=== PATIENT | female | born 1980 ===

== ENCOUNTER → 2018-12-10 | Outpatient (CLI) | payer SELFPAY ==
--- NOTE | 2018-12-10 14:26 | US ---
EXAMINATION TYPE: Transabdominal DATE OF EXAM: 02/03/18 COMPARISON: NONE CLINICAL HISTORY: O46.91 Antepartum hemorrhage first trimester, O76. EXAM PERFORMED: Transabdominal (TA) EXAM MEASUREMENTS: GESTATIONAL AGE / DATING Physician Established: (9 weeks/1 days) EDC: 07/14/2019 Dates by LMP: (9 weeks/1 days) EDC: 07/14/2019 Dates by First Scan: No previous this is first scan Dates by Current Scan for: demise, no heart tones MATERNAL ANATOMY Uterus: 9.4 x 5.3 x 7.7 cm Right Ovary: not identified Left Ovary: not identified Post CDS / Adnexa: wnl Presence of free fluid: none GESTATION / SURVEY CRL: 3.6 cm (10 weeks/4 days) MSD: 4.7 (10 weeks/2 days) Heart Rate: no heart tones Date of LMP: 10/07/2018 IMPRESSION: non viable 10 week 4 day fetus.
== END | disposition home or self-care (01) ==
LOC: RADUSWWP 13:47
PROVIDERS: ATTEND Obstetrics & Gynecology
DX: O76 Abnormality in fetal heart rate and rhythm complicating labor and delivery (principal); Z3A.10 10 weeks gestation of pregnancy
CPT/HCPCS: 76801

== ENCOUNTER → 2019-01-13 | Outpatient (CLI) | payer BC ==
[2019-01-13 17:08] LABS: Basophils % (A) 1 %; Eosinophils # (A) 0.1 k/uL (0-0.7); Eosinophils % (A) 3 %; HCT 38.1 % (34.0-46.0); HGB 12.5 gm/dL (11.4-16.0); Lymphocytes # (A) 1.5 k/uL (1.0-4.8); Lymphocytes % (A) 29 %; MCH 30.5 pg (25.0-35.0); MCHC 32.9 g/dL (31.0-37.0); MCV 92.7 fL (80.0-100.0); Mean Platelet Volume 6.4; Monocytes # (A) 0.2 k/uL (0-1.0); Monocytes % (A) 5 %; Neutrophils # (A) 3.3 k/uL (1.3-7.7); Neutrophils % (A) 62 %; Platelet Count 314 k/uL (150-450); RBC 4.11 m/uL (3.80-5.40); RDW 13.2 % (11.5-15.5); WBC 5.3 k/uL (3.8-10.6)
== END | disposition home or self-care (01) ==
LOC: LABPAT 15:40
PROVIDERS: ATTEND Obstetrics & Gynecology
DX: Z01.812 Encounter for preprocedural laboratory examination (principal); O03.9 Complete or unspecified spontaneous abortion without complication
CPT/HCPCS: 36415; 85025; 86850; 86900; 86901

== ENCOUNTER 2019-01-15 11:49 | Day surgery (SDC) | payer BC ==
[2019-01-14 09:17] VITALS: BMI 24.6
[~2019-01-15 11:49] MED LIST: DEXAMETHASONE SOD PHOSPHATE 10 MG/ML 1 ML VIAL IV ONE; HYDROmorphone 0.5 MG/0.5 ML SYRINGE IVP PRN; LACTATED RINGERS 1,000 ML IV SCH; LIDOCAINE 1% 20 ML VIAL (10MG/ML) FOR IV START INTRADERMA PRN; MIDAZOLAM (PF) 2 MG/2 ML VIAL IV PRN; ONDANSETRON 4 MG/2 ML VIAL IVP ONE; Pre Op ABX Message 1 EACH MISC MISCELLANE ONE; SCOPOLAMINE 1.5MG/72HR PATCH TRANSDERM ONE
[2019-01-15 12:02] VITALS: RESP 16
[2019-01-15] MEDS ORDERED: MIDAZOLAM 2 MG/2 ML VIAL ONE (12:32)
[2019-01-15] MEDS ORDERED: KETOROLAC 30 MG/ML 1 ML VIAL ONE (12:32)
[2019-01-15] MEDS ORDERED: PROPOFOL 10 MG/ML 20 ML VIAL IV ONE (12:32)
[2019-01-15] MEDS ORDERED: fentaNYL (PF) 50 MCG/ML 2 ML AMP ONE (12:32)
[2019-01-15] MEDS ORDERED: LIDOCAINE 1% INJ 10MG/ML (20 ML MDV) ONE (12:32)
[2019-01-15] MEDS ORDERED: Acetaminophen-Codeine 300-30mg TAB PO PRN ×2 (12:56)
[2019-01-15] MEDS ORDERED: KETOROLAC 30 MG/ML 1 ML VIAL IVP PRN (12:56)
[2019-01-15] MEDS ORDERED: ONDANSETRON 4 MG/2 ML VIAL IVP PRN (12:56)
[2019-01-15] MEDS ORDERED: diphenhydrAMINE 50 MG/ML 1 ML VIAL IVP PRN (12:56)
[2019-01-15] MEDS ORDERED: SIMETHICONE 80 MG CHEWABLE PO PRN (12:56)
[2019-01-15] MEDS ORDERED: METOCLOPRAMIDE 5 MG/ML 2 ML VIAL IVP PRN (12:56)
[2019-01-15] MEDS ORDERED: LACTATED RINGERS 1,000 ML IV SCH (13:00)
--- NOTE | 2019-01-15 13:02 | P.OP ---
Date of Procedure: 01/15/19 Preoperative Diagnosis: #1. 9+ week missed Postoperative Diagnosis: Same Procedure(s) Performed: 1. Dilation and aspiration curettage Anesthesia: other (Gen. by face mask) Surgeon: Viral Cruz Estimated Blood Loss (ml): 200 IV fluids (ml): 600 Urine output (ml): 30 Pathology: other (Intrauterine contents) Condition: stable Disposition: PACU Operative Findings: Preoperative pelvic examination demonstrated a roughly 8-10 week retroverted normal shaped uterus with normal adnexa bilaterally. Intraoperatively, the uterus sounded to approximate 10 cm. A #9 curved aspiration curet was utilized and tissue was clearly seen passing through the tubing on the first 2 passes. The typical gritty texture was encountered with a sharp curette. The patient does have cervical descensus to near the opening of the vagina. Description of Procedure: The patient was prepped and draped in usual fashion after general anesthesia was administered by the anesthesiologist. A weighted speculum was placed and the bladder drained of approximately 30 mL of clear faisal urine. The anterior lip of the cervix was grasped with a single-tooth tenaculum and the uterus sounded to approximately 10 cm. Serial dilation was carried out to admit a #9 curved aspiration curet which was placed in the fundus of the uterus and suction applied. After holding adequate suction, the lens and circumferential suction curettage was carried out from the fundus to the cervix with tissue and fluid was seen passing through the tubing. On the second pass tissue was again seen passing through and was noted to be lodged in the cervix. A ring forceps was utilized to tease out what appeared to be the remainder of the tissue. One more pass was made with the suction curet which time no further tissue was noted. It was replaced with a sharp curette which was utilized to again thoroughly and circumferentially curet the initial cavity with no tissue further noted in the typical gritty texture encountered throughout. One last pass was made with the suction curet at which time no further tissue was noted and the cavity was appreciably smaller. All instrumentation was then removed. There was no bleeding ongoing from either the cervix or the tenaculum site. Estimated blood loss for the entire case was approximately 200 mL. There were no complications. All sponge, instrument, and needle counts were correct. The patient tolerated the procedure well and proceeded to the recovery room in stable condition.
[2019-01-15 13:09] VITALS: TEMP 98
[2019-01-15] MEDS ORDERED: LACTATED RINGERS 1,000 ML IV ONE (13:54)
[2019-01-15 14:32] VITALS: BP 112/79; PULSE 89
== END 2019-01-15 14:52 | disposition home or self-care (01) ==
LOC: OR 11:49
PROVIDERS: ATTEND Obstetrics & Gynecology
DX: O02.1 Missed abortion (principal); Z79.899 Other long term (current) drug therapy
CPT/HCPCS: 86900; 86901; 88305; 86850; 59820; J2250; J1100; J2405; J2001; J3010; J1885; J2704

== ENCOUNTER 2020-01-24 15:07 | Inpatient (IN) | payer BC ==
[2020-01-24] MEDS ORDERED: CITRIC ACID-SODIUM CITRATE 15 ML CUP PO ONE (15:10)
[2020-01-24] MEDS: LACTATED RINGERS 1,000 ML IV SCH ×2 (15:28→22:23)
[2020-01-24 15:37] LABS: Anisocytosis Slight; Basophils % (A) 0 %; Eosinophils # (A) 0.1 k/uL (0-0.7); Eosinophils % (A) 1 %; HCT 36.2 % (34.0-46.0); HGB 11.8 gm/dL (11.4-16.0); Lymphocytes # (A) 1.2 k/uL (1.0-4.8); Lymphocytes % (A) 13 %; MCH 29.6 pg (25.0-35.0); MCHC 32.6 g/dL (31.0-37.0); MCV 90.8 fL (80.0-100.0); Monocytes # (A) 0.3 k/uL (0-1.0); Monocytes % (A) 4 %; Neutrophils # (A) 7.4 k/uL (1.3-7.7); Neutrophils % (A) 81 %; Platelet Count 277 k/uL (150-450); RBC 3.99 m/uL (3.80-5.40); RDW 16.9 % (11.5-15.5); WBC 9.2 k/uL (3.8-10.6)
[2020-01-24] MEDS ORDERED: OXYTOCIN 10 UNIT/ML 1 ML VIAL ONE (16:33)
[2020-01-24] MEDS ORDERED: KETOROLAC 30 MG/ML 1 ML VIAL ONE (16:33)
[2020-01-24] MEDS ORDERED: MORPHINE SULFATE (PF) 0.3 MG/0.3 ML SYR ONE (16:33)
[2020-01-24] MEDS ORDERED: NALBUPHINE 10 MG/ML (1 ML AMP) ONE (16:33)
[2020-01-24] MEDS ORDERED: ONDANSETRON 4 MG/2 ML VIAL ONE (16:33)
--- NOTE | 2020-01-24 16:33 | P.HPOB ---
History of Present Illness H&P Date: 01/24/20 Chief Complaint: 40-6/7 weeks, previous section, desires repeat The patient is a 39-year-old 3 para 1011 admitted at 40-6/7 weeks as established by last menstrual period and confirmed by 9 week ultrasound. She is admitted for repeat low transverse section with intraoperative bilateral tubal occlusion with Filshie clips. The risks and, occasions of been thoroughly discussed. She initially had requested a trial of labor but found, as she neared term, that her cervix remained significantly unfavorable and ultimately opted for repeat low transverse section. Group B strep status is negative. Obstetrical history: 3 para 1011 with 1 term section. She had one late first trimester miscarriage that required D&C. Current statistics are listed in history of present illness. EDC of 01/18/2020 was established by last menstrual period and confirmed by 9 week ultrasound. Laboratory workup demonstrates a blood type of O+ with a negative antibody screen. Rubella status is immune. The remainder of the laboratory workup was within normal limits. She did undergo trisomy testing which was negative for evidence of trisomy. One hour Glucola was within normal limits and group B strep status is negative. Gynecologic history: Unremarkable with no history of any infections to include STDs. Review of Systems Review of systems is confined to history of present illness. Past Medical History Past Medical History: No Reported History History of Any Multi-Drug Resistant Organisms: None Reported Past Surgical History: Section, Cholecystectomy Past Anesthesia/Blood Transfusion Reactions: No Reported Reaction Past Psychological History: No Psychological Hx Reported Smoking Status: Never smoker Past Alcohol Use History: Occasional Past Drug Use History: None Reported - Past Family History Mother Family Medical History: No Reported History Medications and Allergies Home Medications Medication Instructions Recorded Confirmed Type Ayq-Jrso-Poknn Acid 1 cap PO DAILY 01/14/19 01/24/20 History [-U Capsule (formulary)] Allergies Allergy/AdvReac Type Severity Reaction Status Date / Time No Known Allergies Allergy Verified 01/14/19 09:11 Exam Vital Signs Temp Pulse Resp BP Pulse Ox 01/24/20 15:45 98.0 F 86 18 120/74 99 Intake and Output 01/24/20 01/24/20 01/24/20 06:59 14:59 22:59 Other: Weight 68.492 kg In general, this is a well-developed, well-nourished female in no acute distress. Her heart has a regular rhythm and rate without murmur. Her lungs are clear to auscultation bilaterally in all nunes. Her abdomen is gravid, nondistended, has normal active bowel sounds, soft, nontender, and without any palpable masses aside from the uterine fundus. Her extremities are without any cyanosis, clubbing, or significant edema and are nontender to palpation bilaterally. Digital cervical examination has demonstrated her cervix to be closed, 30% effaced, the vertex in presentation at a high station. Results Result Diagrams: 01/24/20 15:24 Abnormal Lab Results - Last 24 Hours (Table) 01/24/20 Range/Units 15:24 RDW 16.9 H (11.5-15.5) % Assessment and Plan (1) Post-dates Current Visit: Yes Status: Acute Code(s): O48.0 - POST-TERM SNOMED Code(s): 01531785 (2) Previous section Current Visit: Yes Status: Acute Code(s): Z98.891 - HISTORY OF UTERINE SCAR FROM PREVIOUS SURGERY SNOMED Code(s): 405437985 (3) Family planning Current Visit: Yes Status: Acute Code(s): Z30.09 - ENCOUNTER FOR OT GENERAL CNSL AND ADVICE ON CONTRACEPTION SNOMED Code(s): 110358080 Plan: The patient is admitted for repeat low transverse section with int raoperative bilateral tubal occlusion using Filshie clips. The risks and complications the procedure have been thoroughly discussed including the risk for bleeding and infection. She also understands the risk of tubal ligation as well as its permanent nature and risk for failure.
[2020-01-24] MEDS ORDERED: diphenhydrAMINE 25 MG CAP PO PRN (17:20)
[2020-01-24] MEDS ORDERED: LANOLIN CREAM 5 GM TUBE TOPICAL PRN (17:20)
[2020-01-24] MEDS ORDERED: diphenhydrAMINE 50 MG/ML 1 ML VIAL IVP PRN ×2 (17:20)
[2020-01-24] MEDS ORDERED: ONDANSETRON 4 MG/2 ML VIAL IVP PRN ×2 (17:20→17:49)
[2020-01-24] MEDS ORDERED: NALOXONE 0.4 MG/ML 1 ML VIAL IV PRN ×2 (17:20→17:49)
[2020-01-24] MEDS ORDERED: METOCLOPRAMIDE 5 MG/ML 2 ML VIAL IVP PRN (17:20)
[2020-01-24] MEDS ORDERED: ACETAMINOPHEN TAB 325 MG TAB PO PRN (17:20)
[2020-01-24] MEDS ORDERED: SIMETHICONE 80 MG CHEWABLE PO PRN (17:20)
[2020-01-24] MEDS ORDERED: HYDROcodone/APAP 7.5-325MG 1 EACH TAB PO PRN (17:20)
[2020-01-24] MEDS ORDERED: ZOLPIDEM 5 MG TAB PO PRN (17:20)
[2020-01-24] MEDS ORDERED: diphenhydrAMINE 50 MG CAP PO PRN (17:20)
--- NOTE | 2020-01-24 17:29 | P.OP ---
Date of Procedure: 01/24/20 Preoperative Diagnosis: #1. 40-6/7 weeks, previous section, requesting repeat #2. Undesired fertility #3. Advanced maternal age Postoperative Diagnosis: Same Procedure(s) Performed: #1. Repeat low transverse section #2. Intraoperative bilateral tubal occlusion with Filshie clips Anesthesia: spinal Surgeon: Viral Cruz [employer]er #1: Lisset James Estimated Blood Loss (ml): 500 IV fluids (ml): 800 Urine output (ml): 100 Pathology: none sent Condition: stable Disposition: floor Operative Findings: Intraoperatively, the patient was noted to have minimal to almost no fluid upon opening the uterus. What was there was noted to be particulate meconium-stained in nature. Otherwise, the patient was delivered of a viable 8 lbs. 6 oz. baby girl with Apgars of 8 at 1 minute and 9 at 5 minutes delivered in the left occiput anterior position. There was a loose nuchal cord which was reduced prior to delivery of the infant's body. There was additionally noted to be a true knot in the cord. The placenta was delivered manually, intact, and grossly normal aside from meconium staining with a grossly normal three-vessel cord. The uterus, tubes, and ovaries were entirely normal. A Filshie clip was placed across the entire isthmic portion of the tube approximately 3 cm from the cornu on each side. Scarring was relatively minimal throughout. Description of Procedure: The patient was prepped and draped in usual fashion after spinal anesthesia was administered by the anesthesiologist. A Pfannenstiel incision was made through pre-existing scar and extended into the abdominal cavity without difficulty. The bladder peritoneum was noted to be scarred somewhat high and was therefore elevated, incised, and reflected distally. A 2 cm incision was made in the transverse plane of the lower uterine segment to enter the uterus at which there was almost no fluid noted, was present was meconium-stained. Incision was extended in both directions bluntly. The head was delivered up and through the incision where the nose and mouth were thoroughly suctioned. The remainder of the was delivered onto the field where the cord was doubly clamped, cut, and the infant passed for resuscitative measures with weight and Apgars as noted above. A true knot was noted in the cord at this time. A segment of cord was then doubly clamped, cut, and set aside should cord gases become necessary. The placenta was delivered manually and intact as noted above. The uterus was exteriorized and the interior cavity of the uterus swept of any remaining placental or membranous fragments. The margins of the uterine incision were grasped with Carrasco clamps and the incision closed in a single layer with a running locking stitch of 0 chromic catgut from margin to margin. There did appear to be a developing hematoma on the superior portion of the incision in the right middle portion which was managed with a mjkdea-rs-dpgoa stitch of 0 chromic catgut. Hemostasis was otherwise excellent. The posterior cul-de-sac was suctioned with a guard followed by a laparotomy sponge. After reaffirming the patient's desire for tubal ligation, a Filshie clip was placed across the isthmic portion of each tube and firmly closed approximately 3 cm from the cornu of the uterus on each side. The uterus was replaced within the abdominal cavity and the gutters were swept of any remaining blood, fluid, or clot. The incision was examined and noted to be hemostatic. The parietal peritoneum was loosely reapproximated and layer of muscles examined and made hemostatic with the Bovie. The fascia was closed with 2 running stitches of 0 Vicryl proceeding from the lateral margins to the midpoint. The subcutaneous tissues were irrigated, made hemostatic with the Bovie and did not reapproximated as they were very thin. The skin was reapproximated with a running subcuticular stitch of 4-0 Vicryl followed by half-inch Steri-Strips placed with Mastisol. Estimated blood loss for the entire case was approximate 500 mL. There were no complications. All sponge, instrument, and needle counts were correct. The patient tolerated the procedure well and proceeded to the recovery room in stable condition. Both mother and are resting comfortably in recovery.
[2020-01-24] MEDS ORDERED: OXYTOCIN 20 UNITS/1000 ML NS 1,000 ML IV SCH (17:30)
[2020-01-24] MEDS ORDERED: LACTATED RINGERS 1,000 ML IV SCH (17:30)
[2020-01-24] MEDS ORDERED: HYDROmorphone 0.5 MG/0.5 ML SYRINGE IVP PRN (17:49)
[2020-01-24] MEDS ORDERED: KETOROLAC 30 MG/ML 1 ML VIAL IVP PRN (17:49)
[2020-01-24] MEDS: KETOROLAC 30 MG/ML 1 ML VIAL IVP PRN (22:28)
[2020-01-24] MEDS: SENNOSIDES-DOCUSATE SODIUM 1 EACH TAB PO SCH (22:41)
--- NOTE | 2020-01-25 07:03 | P.PN ---
Progress Note - Text Progress Note Date: 01/25/20 Postoperative day 1 status post section under spinal anesthesia, and intrathecal morphine given for postoperative analgesia, patient doing well, there is no anesthesia related complications, Patient had no headache, vital signs stable , Assessment and plan= postop day 1 status post , doing well there is no anesthesia related complication.
[2020-01-25 07:16] LABS: Anisocytosis Slight; Basophils % (A) 0 %; Eosinophils # (A) 0.1 k/uL (0-0.7); Eosinophils % (A) 1 %; HCT 28.9 % (34.0-46.0); Lymphocytes # (A) 0.8 k/uL (1.0-4.8); Lymphocytes % (A) 10 %; MCH 30.6 pg (25.0-35.0); MCHC 33.3 g/dL (31.0-37.0); MCV 91.7 fL (80.0-100.0); Mean Platelet Volume 8.7; Monocytes # (A) 0.3 k/uL (0-1.0); Monocytes % (A) 3 %; Neutrophils # (A) 6.5 k/uL (1.3-7.7); Neutrophils % (A) 84 %; Platelet Count 273 k/uL (150-450); RBC 3.15 m/uL (3.80-5.40); WBC 7.7 k/uL (3.8-10.6)
[2020-01-25 07:25] LABS: HGB 9.6 gm/dL (11.4-16.0)
[2020-01-25] MEDS: SENNOSIDES-DOCUSATE SODIUM 1 EACH TAB PO SCH ×2 (08:28→21:02)
[2020-01-25] MEDS: LACTATED RINGERS 1,000 ML IV SCH (08:28)
--- NOTE | 2020-01-25 11:22 | P.PNOBGPC ---
Subjective - Subjective Patient reports: Reports appetite normal, Reports voiding normally (Initially required straight catheterization, has been able to void since.), Reports pain well controlled, Reports ambulating normally [place]: doing well, nursing well Objective - Vital Signs Latest vital signs: Vital Signs Temp Pulse Resp BP Pulse Ox 01/25/20 08:00 98.2 F 84 18 95/60 01/25/20 06:00 16 100 01/25/20 04:00 98.2 F 77 16 107/72 100 01/25/20 02:00 16 01/25/20 00:00 98.4 F 72 16 101/62 99 01/24/20 22:00 16 01/24/20 20:49 16 01/24/20 19:31 98.1 F 67 16 111/72 100 01/24/20 19:00 96.5 F L 60 18 114/68 100 01/24/20 18:30 88 18 126/65 99 01/24/20 18:15 69 18 120/64 01/24/20 18:00 96.8 F L 73 18 114/57 100 01/24/20 17:45 96.7 F L 18 111/70 100 01/24/20 17:30 97.0 F L 75 18 106/66 100 01/24/20 15:45 98.0 F 86 18 120/74 99 Intake and Output 01/24/20 01/25/20 01/25/20 22:59 06:59 14:59 Output Total 100 400 700 Balance -100 -400 -700 Output: Urine 100 400 700 Uretheral (Armando) 200 Other: Voiding Method Indwelling Catheter Weight 68.492 kg - Exam Extremities: Present: normal Abdomen: Present: normal appearance, soft. Absent: distention, tenderness Incision: Present: normal, dry, intact Uterus: Present: normal, firm (The uterine fundus is tonic and appropriately tender below the umbilicus.) - Labs Labs: Abnormal Lab Results - Last 24 Hours (Table) 01/24/20 01/25/20 Range/Units 15:24 06:46 RBC 3.15 L (3.80-5.40) m/uL Hgb 9.6 L D (11.4-16.0) gm/dL Hct 28.9 L (34.0-46.0) % RDW 16.9 H 17.0 H (11.5-15.5) % Lymphocytes # 0.8 L (1.0-4.8) k/uL Assessment and Plan (1) Post-dates Current Visit: Yes Status: Acute Code(s): O48.0 - POST-TERM SNOMED Code(s): 89443325 (2) Previous section Current Visit: Yes Status: Acute Code(s): Z98.891 - HISTORY OF UTERINE SCAR FROM PREVIOUS SURGERY SNOMED Code(s): 377283144 (3) Family planning Current Visit: Yes Status: Acute Code(s): Z30.09 - ENCOUNTER FOR OT GENERAL CNSL AND ADVICE ON CONTRACEPTION SNOMED Code(s): 897852072 (4) S/P section Current Visit: Yes Status: Acute Code(s): Z98.891 - HISTORY OF UTERINE SCAR FROM PREVIOUS SURGERY SNOMED Code(s): 147950618 Plan: Continue routine postoperative care. I would anticipate possible discharge home tomorrow pending no complications. I have strongly encouraged the patient to ambulating the hallways as often as possible, at least 4 times daily. Otherwise, her IV fluids will be discontinued though the IV will be left in place for some time in case IV access becomes necessary.
[2020-01-25] MEDS: KETOROLAC 30 MG/ML 1 ML VIAL IVP PRN ×2 (12:11→18:00)
[2020-01-25] MEDS: HYDROcodone/APAP 5-325MG 1 EACH TAB PO PRN (20:33)
[2020-01-26] MEDS: HYDROcodone/APAP 5-325MG 1 EACH TAB PO PRN (04:54)
[2020-01-26 05:11] VITALS: PULSE 85
[2020-01-26] MEDS: SENNOSIDES-DOCUSATE SODIUM 1 EACH TAB PO SCH (07:55)
--- NOTE | 2020-01-26 08:53 | P.DS ---
Providers Date of admission: 01/24/20 15:07 Expected date of discharge: 01/26/20 Attending physician: Viral Cruz Primary care physician: Stated None - Discharge Diagnosis(es) (1) Post-dates Current Visit: Yes Status: Acute (2) Previous section Current Visit: Yes Status: Acute (3) Family planning Current Visit: Yes Status: Acute (4) S/P section Current Visit: Yes Status: Acute Hospital Course: The patient is a 39-year-old 3 para 1011 admitted at 40-6/7 weeks by good dating parameters. She had initially requested vaginal trial of labor but found that her cervix remained extraordinarily unfavorable as she neared and then passed her due date. She carries a history of a previous section. Secondary to the above findings, she opted to proceed with repeat low transverse section. Group B strep status was negative. On labor and delivery, she was taken the operating room where she was delivered of a viable 8 lbs. 6 oz. baby girl with Apgars of 8 at 1 minute and 9 at 5 minutes. Her postoperative course was essentially unremarkable vital signs remaining stable and her temperature was afebrile throughout. She was deemed stable for discharge on post operative day #2 was discharged home to follow-up in the office in 2 weeks for an incision check and 6 weeks routinely. Discharge in structions included calling for any significantly increased bleeding or foul- smelling lochia, significantly increased fever abdominal pain, perineal complaints, breast complaints, incisional complaints, or anything else that concerned her. She was additionally instructed to have nothing in the vagina for at least 6 weeks time to include intercourse. She understood all of her instructions and agrees to follow up as noted above. Discharge medications included continued vitamins as she has opted to breast-feed. She was additionally provided with a prescription for [place] 5/325 mg, 1-2 by mouth every 6 hours when necessary pain, #20 dispensed with no refills. She was less than provided with a prescription for Colace as her HSA will pay for it with a prescription. Maternal blood type is O+ and rubella status is immune. Discharge hemoglobin and hematocrit were 9.6 and 28.9 respectively. Procedures: #1. Repeat low transverse section #2. Intraoperative bilateral tubal occlusion with Filshie clips Patient Condition at Discharge: Stable Plan - Discharge Summary New Discharge Prescriptions: No Action Fdh-Wxru-Wzzdi Acid [-U Capsule (formulary)] 1 cap PO DAILY Discharge Medication List Jjf-Leir-Ytxyx Acid [-U Capsule (formulary)] 1 cap PO DAILY 01/14/19 [History] Follow up Appointment(s)/Referral(s): Viral Cruz MD [STAFF PHYSICIAN] - 2 Weeks Discharge Disposition: HOME SELF-CARE
[2020-01-26] MEDS: IBUPROFEN 600 MG TAB PO PRN ×2 (09:06)
[2020-01-26 11:44] VITALS: BP 114/70; RESP 20; TEMP 97.7
== END 2020-01-26 11:00 | disposition home or self-care (01) | DRG 785 ==
LOC: 4FBP 15:07
PROVIDERS: ADMIT Obstetrics & Gynecology; ATTEND Obstetrics & Gynecology
PROC: 0UL70CZ Occlusion of Bilateral Fallopian Tubes with Extraluminal Device, Open Approach (ICD-10-PCS; principal; 2020-01-24 16:52)
PROC: 10D00Z1 Extraction of Products of Conception, Low, Open Approach (ICD-10-PCS; principal; 2020-01-24 16:52)
DX: O34.211 Maternal care for low transverse scar from previous cesarean delivery (principal); O48.0 Post-term pregnancy; O69.81X0 Labor and delivery complicated by cord around neck, without compression, not applicable or unspecified; O77.0 Labor and delivery complicated by meconium in amniotic fluid; Z30.2 Encounter for sterilization; Z37.0 Single live birth; Z3A.40 40 weeks gestation of pregnancy
CPT/HCPCS: 85025; 86850; 86900; 86901

== ENCOUNTER → 2020-12-06 | Outpatient (CLI) | payer BC ==
--- NOTE | 2020-12-06 17:53 | US ---
EXAMINATION TYPE: US pelvis complete transvag DATE OF EXAM: 12/06/2020 COMPARISON: NONE CLINICAL HISTORY: R10.9 Abdominal Pain. Pain TECHNIQUE: Transvaginal (TV) and Transabdominal (TA) . EXAM MEASUREMENTS: Uterus: 6.7 x 3.4 x 5.4 cm Endometrial Stripe: 1.1 cm Right Ovary: 2.5 x 2.5 x 1.9 cm Left Ovary: 2.0 x 1.5 x 1.5 cm 1. Uterus: Anteverted wnl 2. Endometrium: Small amout of fluid seen. 3. Right Ovary: Complex cystic area seen 1.8 x 1.7 x 1.6 cm 4. Left Ovary: wnl 5. Bilateral Adnexa: wnl 6. Posterior cul-de-sac: wnl IMPRESSION: 1. Complex cyst right ovary. A follow-up exam in 6 weeks is recommended
== END | disposition home or self-care (01) ==
LOC: RADUSWWP 15:06
PROVIDERS: ATTEND Family Medicine
DX: N83.201 Unspecified ovarian cyst, right side (principal)
CPT/HCPCS: 76830; 76856

== ENCOUNTER → 2021-04-04 | Outpatient (CLI) | payer BC ==
--- NOTE | 2021-04-04 17:01 | US ---
EXAMINATION TYPE: US pelvis complete transvag DATE OF EXAM: 04/04/2021 COMPARISON: US dated 12/06/2020 CLINICAL HISTORY: N83.201 ovarian cyst, right side. TECHNIQUE: Transvaginal (TV) and Transabdominal (TA) . Transabdominal sonographic images of the pel vis were acquired. Transvaginal sonographic images were medically necessary to better assess the fol lowing anatomy: Date of LMP: 04/03/2021 EXAM MEASUREMENTS: Uterus: 7.6 x 3.1 x 4.2 cm Endometrial Stripe: 0.6 cm Right Ovary: 2.5 x 2.3 x 1.5 cm Left Ovary: 2.5 x 2.4 x 1.4 cm 1. Uterus: Anteverted wnl 2. Endometrium: wnl 3. Right Ovary: wnl 4. Left Ovary: wnl 5. Bilateral Adnexa: wnl 6. Posterior cul-de-sac: no free fluid IMPRESSION: 1. Unremarkable sonographic study of the pelvis. Endometrial stripe is 6 mm, within normal limits for a menstruating female.
== END | disposition home or self-care (01) ==
LOC: RADUSWWP 14:43
PROVIDERS: ATTEND Family Medicine
DX: N83.201 Unspecified ovarian cyst, right side (principal)
CPT/HCPCS: 76830; 76856

== ENCOUNTER → 2022-09-25 | Outpatient (CLI) | payer BC ==
--- NOTE | 2022-09-25 16:10 | MM ---
Reason for Exam: Screening (asymptomatic). Baseline mammogram. Patient History: Menarche at age 11. First Full-Term at age 37. Late child-bearing (after 30). Patient has history of breast feeding. Risk Values: Sera 5 year model risk: 1.1%. NCI Lifetime model risk: 13.1%. Prior Study Comparison: Patient's first Mammogram. No prior studies available for comparison. Tissue Density: The breast tissue is heterogeneously dense. This may lower the sensitivity of mammography. Findings: Analyzed By CAD. There is no suspicious group of microcalcifications or new suspicious mass in either breast. Overall Assessment: Negative, BI-RAD 1 Management: Screening Mammogram of both breasts in 1 year. A clinical breast exam by your physician is recommended on an annual basis and results should be correlated with mammographic findings. [facility] will attempt to contact patient to return for supplemental views and ultrasound if indicated. Electronically signed and approved by: Freddy Trivedi DO
== END | disposition home or self-care (01) ==
LOC: RADMAMWWP 09:43
PROVIDERS: ATTEND Obstetrics & Gynecology
DX: Z12.31 Encounter for screening mammogram for malignant neoplasm of breast (principal)
CPT/HCPCS: 77067

== ENCOUNTER → 2023-09-11 | Outpatient (CLI) | payer BC ==
--- NOTE | 2023-09-15 06:40 | MM ---
Reason for Exam: Screening (asymptomatic). Last screening mammogram was performed 12 month(s) ago. Patient History: Menarche at age 11. First Full-Term at age 37. Late child-bearing (after 30). Patient has history of breast feeding. Last menstrual period: 09/10/2023 Risk Values: Sera 5 year model risk: 1.1%. NCI Lifetime model risk: 13.0%. Prior Study Comparison: 09/25/2022 Bilateral MG screening mammo w CAD, [facility]. Tissue Density: The breast tissue is heterogeneously dense. This may lower the sensitivity of mammography. Findings: Analyzed By CAD. There is no suspicious group of microcalcifications or new suspicious mass in either breast. Overall Assessment: Negative, BI-RAD 1 Management: Screening Mammogram of both breasts in 1 year. . Patient should continue monthly self-breast exams. A clinical breast exam by your physician is recommended on an annual basis. This exam should not preclude additional follow-up of suspicious palpable abnormalities. Note on Sera scores and lifetime risk: 1. A Sera score greater than 3% is considered moderate risk. If this is the case, consider specialist referral to assess eligibility for a risk reducing agent. 2. If overall lifetime risk for the development of breast cancer is 20% or higher, the patient may qualify for future screening with alternating mammogram and breast MRI. Electronically signed and approved by: Nayan Jackson M.D. Radiologist
== END | disposition home or self-care (01) ==
LOC: RADMAMWWP 15:23
PROVIDERS: ATTEND Family Medicine
DX: Z12.31 Encounter for screening mammogram for malignant neoplasm of breast (principal)
CPT/HCPCS: 77063; 77067

== ENCOUNTER → 2024-11-25 | Outpatient (CLI) | payer BC ==
--- NOTE | 2024-11-25 12:02 | MM ---
Reason for Exam: Screening (asymptomatic). Last mammogram was performed 1 year(s) and 2 month(s) ago. Patient History: Menarche at age 11. First Full-Term at age 37. Late child-bearing (after 30). Patient has history of breast feeding. Maternal cousin had breast cancer, age 45. Risk Values: Sera 5 year model risk: 1.2%. NCI Lifetime model risk: 12.8%. Prior Study Comparison: 09/25/2022 Bilateral MG screening mammo w CAD, [facility]. 09/11/2023 Bilateral MG 3D screening mammo w/cad, [facility]. Tissue Density: The breasts are heterogeneously dense, which may obscure small masses. Findings: Analyzed By CAD. Unchanged small intramammary lymph node upper outer quadrant left breast. Benign oil cyst calcification upper-outer quadrant right breast. Asymmetric density posterior right MLO view just below the retroareolar plane is unchanged. There is no suspicious group of microcalcifications or new suspicious mass in either breast. Overall Assessment: Benign, BI-RAD 2 Management: Screening Mammogram of both breasts in 1 year. Patient should continue monthly self-breast exams. A clinical breast exam by your physician is recommended on an annual basis. This exam should not preclude additional follow-up of suspicious palpable abnormalities. Note on Sera scores and lifetime risk: 1. A Sera score greater than 3% is considered moderate risk. If this is the case, consider specialist referral to assess eligibility for a risk reducing agent. 2. If overall lifetime risk for the development of breast cancer is 20% or higher, the patient may qualify for future screening with alternating mammogram and breast MRI. [facility], , 11/25/2024 11:59 AM. Electronically signed and approved by: Nayan Jackson M.D. Radiologist
== END | disposition home or self-care (01) ==
LOC: RADMAMWWP 09:21
PROVIDERS: ATTEND Family Medicine
DX: Z12.31 Encounter for screening mammogram for malignant neoplasm of breast (principal); R92.333 Mammographic heterogeneous density, bilateral breasts; Z80.3 Family history of malignant neoplasm of breast
CPT/HCPCS: 77067